=== PATIENT | female | born 1930 | race Caucasian/White ===

== ENCOUNTER 2018-11-08 14:18 | Inpatient (IN) ==
[2018-11-08] MEDS ORDERED: ONDANSETRON 4 MG/2 ML VIAL IV STA (14:33)
[2018-11-08] MEDS ORDERED: SODIUM CHLORIDE 0.9% 500 ML IV STA (14:33)
[2018-11-08] MEDS ORDERED: HYDROmorphone 2 MG/1 ML VIAL IV STA (14:33)
[2018-11-08 15:07] LABS: Basophils % 0.4 % (0.0-0.8); Eosinophils # 0.1 10*3/uL (0.0-0.87); Eosinophils % 1.7 % (0.00-10.9); Hematocrit 39.2 VOL% (35.7-47.0); Hemoglobin 12.8 GM/DL (12.0-16.0); Immature Granulocytes % 1.1 %; Immature Granulocytes Absolute 0.08 #; Lymphocytes # 1.1 10*3/uL (1.4-4.0); Lymphocytes % 15.9 % (21.3-54.2); Mean Corpuscular HGB Conc 32.7 GM/DL (32-36); Mean Corpuscular Hemoglobin 31 PG (27-34); Mean Corpuscular Volume 94.7 FL (87-102); Mean Platelet Volume 9.6 FL (9.6-12.0); Monocytes # 0.3 10*3/uL (0.11-0.8); Monocytes % 4.4 % (1.7-12.7); Neutrophils # 5.4 10*3/uL (1.4-7.4); Neutrophils % 76.5 % (38.7-73.9); Platelet Count 219 T/CUMM (130-400); Red Blood Count 4.14 MC/CUMM (3.8-5.5); White Blood Count 7.1 T/CUMM (4-12)
[2018-11-08 15:19] LABS: INR 1.1; PT Patient Result 11.4 SECS
[2018-11-08 15:33] LABS: Albumin 3.9 G/DL (3.4-5.0); Bilirubin,Total 0.4 MG/DL (0.2-1.0); Calcium 8.6 MG/DL (8.5-10.1); Osmolality,Calculated 281.4 MOS/KG (273-304); Potassium 4.2 MMOL/L (3.5-5.1); Total Protein 7.1 G/DL (6.4-8.3)
[2018-11-08] MEDS ORDERED: ceFAZolin 1,000 MG in SYRINGE 1 EACH IV ONE (16:16)
[2018-11-08 18:13] LABS: Apearance,Urine CLEAR (Clear); Bacteria,Urine Occasional /HPF (Few); Bilirubin,Urine Negative (Negative); Blood, Urine Small mg/dL (Negative); Glucose,Urine (UA) Negative (Negative); Hyaline Casts,Urine 1 /LPF (0-3); Ketones,Urine 5 mg/dL (Negative); Mucus,Urine Occasional /LPF (Occasional); Nitrite,Urine Negative (Negative); Protein,Urine Negative; RBC,Urine 2 /HPF (0-4); Squamous Epithelial Cell,Urine Occasional /HPF (0-10); Urine Color Yellow (Yellow); Urine Specific Gravity 1.018 (1.001-1.035); Urine Urobilinogen < 2.0 EU/DL (0.2-1.0); WBC,Urine <1 /HPF (0-6)
[2018-11-08] MEDS ORDERED: MORPHINE 4 MG/1 ML VIAL IV PRN (18:51)
[2018-11-08] MEDS ORDERED: CETIRIZINE 10 MG TABLET PO PRN (18:51)
[2018-11-08] MEDS ORDERED: INFLUENZA VIRUS VACCINE 0.5 ML SYRINGE IM ONE (19:38)
[2018-11-08] MEDS: SODIUM CHLORIDE 0.9% 1,000 ML IV SCH (22:17)
[2018-11-09 06:02] LABS: Basophils % 0.3 % (0.0-0.8); Eosinophils # 0.1 10*3/uL (0.0-0.87); Eosinophils % 0.9 % (0.00-10.9); Hematocrit 32.3 VOL% (35.7-47.0); Immature Granulocytes % 0.8 %; Immature Granulocytes Absolute 0.06 #; Lymphocytes # 1.1 10*3/uL (1.4-4.0); Lymphocytes % 14.2 % (21.3-54.2); Mean Corpuscular HGB Conc 31.9 GM/DL (32-36); Mean Corpuscular Hemoglobin 31 PG (27-34); Mean Corpuscular Volume 96.1 FL (87-102); Mean Platelet Volume 9.8 FL (9.6-12.0); Monocytes # 0.6 10*3/uL (0.11-0.8); Monocytes % 8.4 % (1.7-12.7); Neutrophils # 5.6 10*3/uL (1.4-7.4); Neutrophils % 75.4 % (38.7-73.9); Platelet Count 184 T/CUMM (130-400); Red Blood Count 3.36 MC/CUMM (3.8-5.5); Red Cell Distribution Width 13.2 % (9.3-17.3); White Blood Count 7.4 T/CUMM (4-12)
[2018-11-09 06:03] LABS: Calcium 7.8 MG/DL (8.5-10.1); Osmolality,Calculated 285.1 MOS/KG (273-304); Potassium 4.4 MMOL/L (3.5-5.1)
[2018-11-09 06:04] LABS: Hemoglobin 10.3 GM/DL (12.0-16.0)
[2018-11-09] MEDS ORDERED: ceFAZolin 1,000 MG in SYRINGE 1 EACH IV ONE (06:30)
[2018-11-09] MEDS: SODIUM CHLORIDE 0.9% 1,000 ML IV SCH ×2 (09:31→14:15)
[2018-11-09] MEDS: LOSARTAN 50 MG TABLET PO SCH (09:56)
[2018-11-09] MEDS: FUROSEMIDE 20 MG TABLET PO SCH (09:56)
[2018-11-09] MEDS ORDERED: ROPIVACAINE 0.5% 30 ML VIAL ONE (11:09)
[2018-11-09] MEDS ORDERED: LIDOCAINE 4% TOP SOLN 50 ML BOTTLE ONE (11:09)
[2018-11-09] MEDS ORDERED: EPINEPHrine 1 MG/ML VIAL ONE (11:13)
[2018-11-09] MEDS ORDERED: LACTULOSE 20 GM/30 ML UDCUP PO PRN (13:07)
[2018-11-09] MEDS ORDERED: PROMETHAZINE 25 MG/1 ML VIAL IM PRN (13:07)
[2018-11-09] MEDS ORDERED: ONDANSETRON 4 MG/2 ML VIAL IV PRN ×2 (13:07→13:33)
[2018-11-09] MEDS ORDERED: TEMAZEPAM 7.5 MG CAPSULE PO PRN (13:07)
[2018-11-09] MEDS ORDERED: diphenhydrAMINE CAP 25 MG CAPSULE PO PRN (13:07)
[2018-11-09] MEDS ORDERED: MAGNESIUM HYDROXIDE SUSP 30 ML UDCUP PO PRN (13:07)
[2018-11-09] MEDS ORDERED: BISACODYL 10 MG SUPP RECTAL PRN (13:07)
[2018-11-09] MEDS ORDERED: MORPHINE 4 MG/1 ML VIAL IV PRN ×2 (13:10→13:23)
[2018-11-09] MEDS ORDERED: HYDROmorphone 2 MG/1 ML VIAL IV PRN (13:33)
[2018-11-09] MEDS ORDERED: ETOMIDATE 40 MG/20 ML VIAL IV ONE (13:35)
[2018-11-09] MEDS ORDERED: PROPOFOL 200 MG/20 ML VIAL IV ONE (13:35)
[2018-11-09] MEDS ORDERED: SEVOFLURANE 1 UNIT/15 MINUTE INH ONE (13:35)
[2018-11-09] MEDS ORDERED: ePHEDrine 50 MG/ML AMP ONE (13:35)
[2018-11-09] MEDS ORDERED: GLYCOPYRROLATE 0.4 MG/2 ML VIAL ONE (13:35)
[2018-11-09] MEDS ORDERED: fentaNYL 100 MCG/2 ML VIAL ONE (13:35)
[2018-11-09] MEDS ORDERED: NEOSTIGMINE 10 MG/10 ML VIAL ONE (13:36)
[2018-11-09] MEDS ORDERED: ROCURONIUM 100 MG/10 ML VIAL IV ONE (13:36)
[2018-11-09] MEDS: ceFAZolin 1,000 MG in SYRINGE 1 EACH IV SCH (17:41)
[2018-11-09] MEDS: DOCUSATE SODIUM 100 MG CAPSULE PO SCH (20:46)
[2018-11-10] MEDS: ceFAZolin 1,000 MG in SYRINGE 1 EACH IV SCH ×2 (01:24→09:51)
[2018-11-10 05:50] LABS: Calcium 7.6 MG/DL (8.5-10.1); Osmolality,Calculated 285.3 MOS/KG (273-304); Potassium 4.4 MMOL/L (3.5-5.1)
[2018-11-10 05:51] LABS: Hematocrit 26.3 VOL% (35.7-47.0); Immature Granulocytes % 1.1 %; Lymphocytes # 0.5 10*3/uL (1.4-4.0); Lymphocytes % 5.5 % (21.3-54.2); Mean Corpuscular HGB Conc 31.6 GM/DL (32-36); Mean Corpuscular Hemoglobin 30 PG (27-34); Mean Platelet Volume 10.4 FL (9.6-12.0); Monocytes # 0.7 10*3/uL (0.11-0.8); Monocytes % 7.9 % (1.7-12.7); Neutrophils # 7.8 10*3/uL (1.4-7.4); Neutrophils % 85.5 % (38.7-73.9); Platelet Count 174 T/CUMM (130-400); Red Blood Count 2.74 MC/CUMM (3.8-5.5); Red Cell Distribution Width 13.2 % (9.3-17.3); White Blood Count 9.2 T/CUMM (4-12)
[2018-11-10 05:52] LABS: Hemoglobin 8.3 GM/DL (12.0-16.0)
[2018-11-10] MEDS: SODIUM CHLORIDE 0.9% 1,000 ML IV SCH (06:13)
[2018-11-10] MEDS: FUROSEMIDE 20 MG TABLET PO SCH (09:50)
[2018-11-10] MEDS: DOCUSATE SODIUM 100 MG CAPSULE PO SCH ×2 (09:50→21:04)
[2018-11-10] MEDS: LOSARTAN 50 MG TABLET PO SCH (09:50)
[2018-11-10] MEDS ORDERED: RIVAROXABAN 15 MG TABLET PO SCH (17:00)
[2018-11-10] MEDS: ALUMINUM/MAGNES/SIMETH MAX STR 30 ML UDCUP PO PRN (23:35)
[2018-11-11] MEDS: SODIUM CHLORIDE 0.9% 1,000 ML IV SCH ×2 (02:32→03:29)
[2018-11-11 05:28] LABS: Basophils % 0.3 % (0.0-0.8); Eosinophils # 0.3 10*3/uL (0.0-0.87); Eosinophils % 3.4 % (0.00-10.9); Hematocrit 24.2 VOL% (35.7-47.0); Hemoglobin 7.8 GM/DL (12.0-16.0); Immature Granulocytes % 1.2 %; Immature Granulocytes Absolute 0.11 #; Lymphocytes # 1.3 10*3/uL (1.4-4.0); Mean Corpuscular HGB Conc 32.2 GM/DL (32-36); Mean Corpuscular Hemoglobin 31 PG (27-34); Mean Corpuscular Volume 95.7 FL (87-102); Mean Platelet Volume 10.2 FL (9.6-12.0); Monocytes # 0.7 10*3/uL (0.11-0.8); Monocytes % 7.5 % (1.7-12.7); NRBC # 0.02 10*3/uL; Neutrophils # 6.7 10*3/uL (1.4-7.4); Neutrophils % 73.6 % (38.7-73.9); Platelet Count 167 T/CUMM (130-400); Red Blood Count 2.53 MC/CUMM (3.8-5.5); Red Cell Distribution Width 13.4 % (9.3-17.3); White Blood Count 9.1 T/CUMM (4-12)
[2018-11-11] MEDS ORDERED: SODIUM CHLORIDE 0.9% 1,000 ML IV PRN ×2 (09:16→09:17)
[2018-11-11] MEDS: FUROSEMIDE 20 MG TABLET PO SCH (10:03)
[2018-11-11] MEDS: DOCUSATE SODIUM 100 MG CAPSULE PO SCH ×2 (10:03→20:59)
[2018-11-11] MEDS: LOSARTAN 50 MG TABLET PO SCH (10:03)
[2018-11-11] MEDS: BENZOCAINE/MENTHOL LOZENGE 18/BOX PO PRN ×2 (14:21→16:42)
[2018-11-11] MEDS: ALUMINUM/MAGNES/SIMETH MAX STR 30 ML UDCUP PO PRN (22:22)
[2018-11-12 06:20] LABS: Basophils # 0.1 10*3/uL (0.0-0.2); Basophils % 0.6 % (0.0-0.8); Eosinophils # 0.4 10*3/uL (0.0-0.87); Eosinophils % 5.5 % (0.00-10.9); Hematocrit 30.1 VOL% (35.7-47.0); Immature Granulocytes % 1.2 %; Lymphocytes # 0.9 10*3/uL (1.4-4.0); Lymphocytes % 11.3 % (21.3-54.2); Mean Corpuscular HGB Conc 32.2 GM/DL (32-36); Mean Corpuscular Hemoglobin 29 PG (27-34); Mean Corpuscular Volume 90.9 FL (87-102); Mean Platelet Volume 10.1 FL (9.6-12.0); Monocytes # 0.6 10*3/uL (0.11-0.8); Monocytes % 7.8 % (1.7-12.7); Neutrophils # 5.9 10*3/uL (1.4-7.4); Neutrophils % 73.6 % (38.7-73.9); Platelet Count 172 T/CUMM (130-400); Red Cell Distribution Width 15.5 % (9.3-17.3)
[2018-11-12 06:34] LABS: Calcium 7.3 MG/DL (8.5-10.1); Osmolality,Calculated 282.4 MOS/KG (273-304); Potassium 4.3 MMOL/L (3.5-5.1)
[2018-11-12 06:53] LABS: Hemoglobin 9.7 GM/DL (12.0-16.0); Red Blood Count 3.31 MC/CUMM (3.8-5.5)
[2018-11-12] MEDS: SODIUM CHLORIDE 0.9% 1,000 ML IV SCH (08:06)
[2018-11-12] MEDS: LOSARTAN 50 MG TABLET PO SCH (08:20)
[2018-11-12] MEDS: FUROSEMIDE 20 MG TABLET PO SCH (08:21)
[2018-11-12] MEDS: DOCUSATE SODIUM 100 MG CAPSULE PO SCH (08:21)
[2018-11-12 11:49] VITALS: BP 110/73
[2018-11-12] MEDS: ALUMINUM/MAGNES/SIMETH MAX STR 30 ML UDCUP PO PRN (12:53)
== END 2018-11-12 14:15 | DRG 481 ==
LOC: EDBD → EDUNIT# → N.ED 14:18 → N.EDINP 16:57 → SUATTDRO 16:57 → N.3E 18:25
PROVIDERS: ADMIT Internal Medicine; ATTEND Family Medicine

== ENCOUNTER 2019-03-08 03:23 | Observation (INO) ==
[2019-03-08] MEDS ORDERED: METOPROLOL TARTRATE 5 MG/5 ML VIAL IV STA (04:14)
[2019-03-08 04:56] LABS: Basophils % 0.3 % (0.0-0.8); Eosinophils % 0.2 % (0.00-10.9); Hematocrit 41.6 VOL% (35.7-47.0); Hemoglobin 13.2 GM/DL (12.0-16.0); Immature Granulocytes % 1.7 %; Immature Granulocytes Absolute 0.19 #; Lymphocytes # 0.8 10*3/uL (1.4-4.0); Lymphocytes % 7.5 % (21.3-54.2); Mean Corpuscular HGB Conc 31.7 GM/DL (32-36); Mean Corpuscular Hemoglobin 29 PG (27-34); Mean Corpuscular Volume 92.4 FL (87-102); Mean Platelet Volume 9.6 FL (9.6-12.0); Monocytes # 0.6 10*3/uL (0.11-0.8); Monocytes % 5.4 % (1.7-12.7); Neutrophils # 9.4 10*3/uL (1.4-7.4); Neutrophils % 84.9 % (38.7-73.9); Platelet Count 250 T/CUMM (130-400); Red Cell Distribution Width 13.6 % (9.3-17.3)
[2019-03-08 05:18] LABS: INR 1.3; PT Patient Result 14.2 SECS; Partial Thromboplastin Time 39.3 SECS (0-40)
[2019-03-08] MEDS ORDERED: ONDANSETRON 4 MG/2 ML VIAL IV ONE (05:21)
[2019-03-08 05:34] LABS: Apearance,Urine CLEAR (Clear); Bacteria,Urine Occasional /HPF (Few); Bilirubin,Urine Negative (Negative); Blood, Urine Moderate mg/dL (Negative); Glucose,Urine (UA) Negative (Negative); Ketones,Urine Negative (Negative); Mucus,Urine Occasional /LPF (Occasional); Nitrite,Urine Negative (Negative); Protein,Urine Negative; Urine Color Yellow (Yellow); Urine Specific Gravity 1.009 (1.001-1.035); Urine Urobilinogen < 2.0 EU/DL (0.2-1.0); WBC,Urine <1 /HPF (0-6)
[2019-03-08] MEDS ORDERED: SODIUM CHLORIDE 0.9% 1,000 ML IV STA ×2 (05:37→05:55)
[2019-03-08 05:44] LABS: Albumin 3.5 G/DL (3.4-5.0); Bilirubin,Total 0.9 MG/DL (0.2-1.0); Calcium 8.4 MG/DL (8.5-10.1); Osmolality,Calculated 279.5 MOS/KG (273-304); Potassium 4.3 MMOL/L (3.5-5.1); Total Protein 6.2 G/DL (6.4-8.3)
[2019-03-08] MEDS ORDERED: ACETAMINOPHEN 325 MG TABLET PO PRN (08:05)
[2019-03-08] MEDS ORDERED: ONDANSETRON 4 MG TABLET PO PRN (08:14)
[2019-03-08] MEDS ORDERED: CETIRIZINE 10 MG TABLET PO PRN (08:14)
[2019-03-08 08:53] LABS: Thyroid Stimulating Hormone 1.74 uIU/ml (0.358-3.74)
[2019-03-08] MEDS: LOSARTAN 50 MG TABLET PO SCH (10:02)
[2019-03-08] MEDS: PANTOPRAZOLE 40 MG TABLET PO SCH (10:03)
[2019-03-08] MEDS: POTASSIUM CHLORIDE 10 MEQ TABLET PO SCH (10:03)
[2019-03-08] MEDS ORDERED: SODIUM CHLORIDE 0.9% 1,000 ML IV SCH (12:00)
[2019-03-08] MEDS: SKIN HEALING OINT (AQUAPHOR) 50 GM TUBE TOP SCH (16:57)
[2019-03-08] MEDS ORDERED: RIVAROXABAN 15 MG TABLET PO SCH (17:00)
[2019-03-08] MEDS ORDERED: CITALOPRAM 20 MG TABLET PO SCH (21:00)
[2019-03-08] MEDS: NYSTATIN POWDER 15 GM BOTTLE TOP SCH (21:42)
[2019-03-09 06:12] LABS: Basophils % 0.4 % (0.0-0.8); Eosinophils # 0.1 10*3/uL (0.0-0.87); Eosinophils % 1.1 % (0.00-10.9); Hematocrit 34.3 VOL% (35.7-47.0); Hemoglobin 10.6 GM/DL (12.0-16.0); Immature Granulocytes % 0.7 %; Immature Granulocytes Absolute 0.06 #; Lymphocytes % 11.9 % (21.3-54.2); Mean Corpuscular HGB Conc 30.9 GM/DL (32-36); Mean Corpuscular Hemoglobin 30 PG (27-34); Mean Corpuscular Volume 95.8 FL (87-102); Mean Platelet Volume 9.7 FL (9.6-12.0); Monocytes # 0.5 10*3/uL (0.11-0.8); Monocytes % 6.6 % (1.7-12.7); Neutrophils # 6.4 10*3/uL (1.4-7.4); Neutrophils % 79.3 % (38.7-73.9); Platelet Count 195 T/CUMM (130-400); Red Blood Count 3.58 MC/CUMM (3.8-5.5); Red Cell Distribution Width 13.8 % (9.3-17.3); White Blood Count 8.1 T/CUMM (4-12)
[2019-03-09 06:39] LABS: Albumin 2.6 G/DL (3.4-5.0); Bilirubin,Total 0.4 MG/DL (0.2-1.0); Calcium 7.4 MG/DL (8.5-10.1); Potassium 4.2 MMOL/L (3.5-5.1); Total Protein 5.1 G/DL (6.4-8.3)
[2019-03-09 08:00] VITALS: BP 121/59
[2019-03-09] MEDS: PANTOPRAZOLE 40 MG TABLET PO SCH (09:53)
[2019-03-09] MEDS: LOSARTAN 50 MG TABLET PO SCH (09:53)
[2019-03-09] MEDS: POTASSIUM CHLORIDE 10 MEQ TABLET PO SCH (09:53)
[2019-03-09] MEDS: SKIN HEALING OINT (AQUAPHOR) 50 GM TUBE TOP SCH (09:54)
[2019-03-09] MEDS: NYSTATIN POWDER 15 GM BOTTLE TOP SCH (09:54)
== END 2019-03-09 12:35 | disposition home or self-care (01) ==
LOC: N.EDINP 03:23 → N.ED 03:23 → N.TELES 08:49
PROVIDERS: ADMIT Emergency Medicine; ATTEND Emergency Medicine

== ENCOUNTER 2019-04-30 15:46 | Inpatient (IN) ==
[2019-04-30] MEDS ORDERED: ATROPINE 1 MG/10 ML SYRINGE IV STA (16:18)
[2019-04-30] MEDS ORDERED: CLINDAMYCIN INJ 900 MG in PREMIX 1 EACH IV STA (16:18)
[2019-04-30 16:32] LABS: Basophils % 0.6 % (0.0-0.8); Eosinophils # 0.1 10*3/uL (0.0-0.87); Eosinophils % 1.5 % (0.00-10.9); Hemoglobin 11.5 GM/DL (12.0-16.0); Immature Granulocytes % 0.9 %; Immature Granulocytes Absolute 0.06 #; Lymphocytes # 1.1 10*3/uL (1.4-4.0); Lymphocytes % 16.8 % (21.3-54.2); Mean Corpuscular HGB Conc 31.1 GM/DL (32-36); Mean Corpuscular Volume 94.4 FL (87-102); Mean Platelet Volume 9.6 FL (9.6-12.0); Monocytes % 5.8 % (1.7-12.7); Neutrophils % 74.4 % (38.7-73.9); Platelet Count 256 T/CUMM (130-400); Red Blood Count 3.92 MC/CUMM (3.8-5.5); Red Cell Distribution Width 14.1 % (9.3-17.3); White Blood Count 6.6 T/CUMM (4-12)
[2019-04-30 17:01] LABS: Apearance,Urine CLEAR (Clear); Bacteria,Urine Occasional /HPF (Few); Bilirubin,Urine Negative (Negative); Blood, Urine Negative (Negative); Glucose,Urine (UA) Negative (Negative); Hyaline Casts,Urine 20 /LPF (0-3); Ketones,Urine Negative (Negative); Mucus,Urine Occasional /LPF (Occasional); Nitrite,Urine Negative (Negative); Protein,Urine Negative; RBC,Urine 2 /HPF (0-4); Squamous Epithelial Cell,Urine Occasional /HPF (0-10); Urine Color Yellow (Yellow); Urine Specific Gravity 1.018 (1.001-1.035); Urine Urobilinogen < 2.0 EU/DL (0.2-1.0); WBC,Urine 2 /HPF (0-6)
[2019-04-30 17:07] LABS: Alanine Aminotransferase 9 U/L (13-56); Albumin 3.8 G/DL (3.4-5.0); Alkaline Phosphatase 91 U/L (45-117); Aspartate Amino Transferase 13 U/L (0-37); Bilirubin,Total < 0.39 MG/DL (0.2-1.0); Blood Urea Nitrogen 33 MG/DL (7-18); Calcium 8.4 MG/DL (8.5-10.1); Glucose 115 MG/DL (74-106); Osmolality,Calculated 277.1 MOS/KG (273-304); Total Protein 6.7 G/DL (6.4-8.3); Troponin I < 0.015 NG/ML (0.00-0.045)
[2019-04-30 17:14] LABS: Barbiturates Screen,Urine Negative (Negative); Benzodiazepines Screen,Urine Negative (Negative); Cannabinoid Screen,Urine Negative (Negative); Opiate Screen,Urine Negative (Negative); Phencyclidine Screen,Urine Negative (Negative)
[2019-04-30] MEDS ORDERED: CETIRIZINE 10 MG TABLET PO PRN (18:22)
[2019-04-30] MEDS ORDERED: hydrALAZINE 20 MG/1 ML VIAL IV PRN (18:37)
[2019-04-30] MEDS: ONDANSETRON 4 MG/2 ML VIAL IV PRN (20:37)
[2019-04-30] MEDS ORDERED: POTASSIUM CHLORIDE 10 MEQ TABLET PO SCH (21:00)
[2019-04-30] MEDS: POTASSIUM CHLORIDE 20 MEQ/15 ML UDCUP PO SCH (21:27)
[2019-04-30] MEDS: ACETAMINOPHEN 325 MG TABLET PO PRN (21:27)
[2019-05-01] MEDS: ONDANSETRON 4 MG/2 ML VIAL IV PRN (01:40)
[2019-05-01] MEDS: ACETAMINOPHEN 325 MG TABLET PO PRN ×3 (04:23→20:15)
[2019-05-01 05:24] LABS: Basophils % 0.5 % (0.0-0.8); Eosinophils # 0.1 10*3/uL (0.0-0.87); Eosinophils % 1.7 % (0.00-10.9); Hematocrit 31.2 VOL% (35.7-47.0); Hemoglobin 9.9 GM/DL (12.0-16.0); Immature Granulocytes % 0.9 %; Immature Granulocytes Absolute 0.05 #; Lymphocytes # 1.2 10*3/uL (1.4-4.0); Lymphocytes % 21.2 % (21.3-54.2); Mean Corpuscular HGB Conc 31.7 GM/DL (32-36); Mean Corpuscular Volume 93.1 FL (87-102); Mean Platelet Volume 10.1 FL (9.6-12.0); Monocytes % 9.2 % (1.7-12.7); Neutrophils % 66.5 % (38.7-73.9); Platelet Count 199 T/CUMM (130-400); Red Blood Count 3.35 MC/CUMM (3.8-5.5); Red Cell Distribution Width 14.3 % (9.3-17.3); White Blood Count 5.8 T/CUMM (4-12)
[2019-05-01 05:58] LABS: Calcium 8.1 MG/DL (8.5-10.1); Osmolality,Calculated 278.1 MOS/KG (273-304); Risk Ratio 3.36; Thyroid Stimulating Hormone 2.01 uIU/ml (0.358-3.74); VLDL CHOLESTEROL 21.8 MG/DL
[2019-05-01] MEDS ORDERED: FUROSEMIDE 20 MG TABLET PO SCH (09:00)
[2019-05-01] MEDS ORDERED: LOSARTAN 50 MG TABLET PO SCH (09:00)
[2019-05-01] MEDS ORDERED: SODIUM CHLORIDE 0.9% 1,000 ML IV SCH (10:00)
[2019-05-01] MEDS: PANTOPRAZOLE 40 MG TABLET PO SCH (10:11)
[2019-05-01] MEDS: POTASSIUM CHLORIDE 20 MEQ/15 ML UDCUP PO SCH (10:13)
[2019-05-01] MEDS ORDERED: ATROPINE 1 MG/10 ML SYRINGE IV ONE (13:42)
[2019-05-01] MEDS ORDERED: ATROPINE 1 MG/10 ML SYRINGE IV PRN (13:48)
[2019-05-02 06:38] LABS: Basophils % 0.3 % (0.0-0.8); Eosinophils # 0.1 10*3/uL (0.0-0.87); Eosinophils % 1.4 % (0.00-10.9); Hematocrit 33.9 VOL% (35.7-47.0); Hemoglobin 10.6 GM/DL (12.0-16.0); Immature Granulocytes Absolute 0.07 #; Lymphocytes # 1.2 10*3/uL (1.4-4.0); Lymphocytes % 16.4 % (21.3-54.2); Mean Corpuscular HGB Conc 31.3 GM/DL (32-36); Mean Corpuscular Volume 93.6 FL (87-102); Mean Platelet Volume 9.9 FL (9.6-12.0); Monocytes % 6.9 % (1.7-12.7); Platelet Count 166 T/CUMM (130-400); Red Blood Count 3.62 MC/CUMM (3.8-5.5); Red Cell Distribution Width 14.2 % (9.3-17.3); White Blood Count 7.1 T/CUMM (4-12)
[2019-05-02 07:22] LABS: Calcium 8.2 MG/DL (8.5-10.1); Osmolality,Calculated 284.5 MOS/KG (273-304)
[2019-05-02] MEDS: PANTOPRAZOLE 40 MG TABLET PO SCH (08:40)
[2019-05-02 16:15] LABS: Vitamin B12 254 PG/ML (211-911)
[2019-05-02] MEDS ORDERED: LORazepam 1 MG TABLET PO PRN (16:37)
[2019-05-03] MEDS: ACETAMINOPHEN 325 MG TABLET PO PRN ×2 (05:56→19:57)
[2019-05-03 06:33] LABS: Basophils % 0.4 % (0.0-0.8); Eosinophils % 0.4 % (0.00-10.9); Hematocrit 32.3 VOL% (35.7-47.0); Hemoglobin 10.4 GM/DL (12.0-16.0); Immature Granulocytes % 1.5 %; Lymphocytes # 0.9 10*3/uL (1.4-4.0); Lymphocytes % 13.9 % (21.3-54.2); Mean Corpuscular HGB Conc 32.2 GM/DL (32-36); Mean Corpuscular Volume 92.6 FL (87-102); Mean Platelet Volume 10.2 FL (9.6-12.0); Monocytes % 6.7 % (1.7-12.7); Neutrophils % 77.1 % (38.7-73.9); Platelet Count 161 T/CUMM (130-400); Red Blood Count 3.49 MC/CUMM (3.8-5.5); Red Cell Distribution Width 14.3 % (9.3-17.3); White Blood Count 6.8 T/CUMM (4-12)
[2019-05-03 07:07] LABS: Albumin 3.1 G/DL (3.4-5.0); Bilirubin,Total 1.4 MG/DL (0.2-1.0); Calcium 8.2 MG/DL (8.5-10.1); Osmolality,Calculated 283.4 MOS/KG (273-304)
[2019-05-03] MEDS: PANTOPRAZOLE 40 MG TABLET PO SCH (12:18)
[2019-05-03] MEDS ORDERED: SODIUM CHLORIDE 0.65% NASAL SPRAY 45 ML BOTTLE BOTH NARES PRN (17:03)
[2019-05-03] MEDS: FLUTICASONE 50 MCG NASAL SPRAY 16 GM BOTTLE BOTH NARES SCH ×2 (17:53→20:00)
[2019-05-04 05:16] LABS: Basophils % 0.6 % (0.0-0.8); Eosinophils # 0.1 10*3/uL (0.0-0.87); Eosinophils % 2.1 % (0.00-10.9); Hematocrit 34.2 VOL% (35.7-47.0); Hemoglobin 10.8 GM/DL (12.0-16.0); Immature Granulocytes Absolute 0.07 #; Lymphocytes # 1.1 10*3/uL (1.4-4.0); Lymphocytes % 16.7 % (21.3-54.2); Mean Corpuscular HGB Conc 31.6 GM/DL (32-36); Mean Platelet Volume 10.1 FL (9.6-12.0); Monocytes % 8.9 % (1.7-12.7); Neutrophils % 70.7 % (38.7-73.9); Platelet Count 159 T/CUMM (130-400); Red Blood Count 3.64 MC/CUMM (3.8-5.5); Red Cell Distribution Width 14.2 % (9.3-17.3); White Blood Count 6.7 T/CUMM (4-12)
[2019-05-04] MEDS: PANTOPRAZOLE 40 MG TABLET PO SCH (09:53)
[2019-05-04] MEDS: FLUTICASONE 50 MCG NASAL SPRAY 16 GM BOTTLE BOTH NARES SCH (09:55)
[2019-05-04] MEDS ORDERED: CARVEDILOL 3.125 MG TABLET PO SCH (14:43)
[2019-05-04 15:59] VITALS: BP 118/57
[2019-05-05] MEDS ORDERED: ASPIRIN EC 81 MG TABLET PO SCH (09:00)
== END 2019-05-04 16:10 | DRG 309 ==
LOC: N.EDINP 15:46 → N.ED 15:46 → N.TELES 19:26 → SUATTDRO 05-01 15:53
PROVIDERS: ADMIT Internal Medicine; ATTEND Internal Medicine